=== PATIENT | female | born 1995 | race Caucasian/White ===

== ENCOUNTER → 2022-03-11 | Outpatient (CLI) | payer MEDICAID, SELFPAY ==
[2022-03-12 21:08] LABS: Chlamydia By Nucleic Acid AMP Negative (Negative)
[2022-03-12 21:44] LABS: Gonococcus By Nucleic Acid AMP Negative (Negative)
[2022-03-15 11:34] LABS: HPV Reflexed? NOT INDICATED
== END | disposition home or self-care (01) ==
LOC: LABSPEC 09:59
PROVIDERS: Visit Provider Obstetrics & Gynecology
DX: Z34.00 Encounter for supervision of normal first pregnancy, unspecified trimester (principal)
CPT/HCPCS: 87086; 87088; 87491; 87591; 88175; G0145

== ENCOUNTER → 2022-03-24 | Outpatient (CLI) | payer MEDICAID, SELFPAY ==
[2022-03-24 09:29] LABS: Absolute Lymphocyte Count 1.35 X10^3/uL (0.83-4.51); Absolute Neutrophil Count 4.5 X10^3/uL (2.0-7.7); Basophil# 0.02 X10^3/uL; Basophil% 0.3 % (0-1); Eosinophil# 0.06 X10^3/uL; Eosinophils% 0.9 % (0-5); Hematocrit 40.1 % (37-47); Hemoglobin 13.2 g/dL (12.0-15.0); Lymphocyte # 1.35 X10^3/ul (0.83-4.51); Lymphocyte % 20.5 % (19-41); Mean Corp Hgb Conc 32.9 g/dL (32-36); Mean Corpuscular Hgb 28.4 pg (27.0-32.0); Mean Corpuscular Volume 86.4 fL (81-99); Mean Platelet Vol. 11.1 fl (6.2-12.0); Monocyte# 0.58 X10^3/uL; Monocyte% 8.8 % (0-10); NRBC Flagged by Analyzer 0 % (0-5); Neutrophil # 4.54 X10^3/uL (2.7-7.7); Neutrophil % 69.2 % (47-70); Platelet Count 293 K/mm3 (150-450); RBC Distribution Width CV 13.2 % (11.6-14.6); RBC Distribution Width SD 41.1 fl (35.1-43.9); Red Blood Count 4.64 M/mm3 (4.2-5.4); White Blood Count 6.6 K/mm3 (4.4-11.0)
[2022-03-24 10:07] LABS: Glucose Challenge Gest 1H 50g 104 mg/dL (70-140)
[2022-03-24 10:15] LABS: NATERA MAILED SPECIMEN
[2022-03-24 10:46] LABS: HIV - WCH Non-Reactive (Nonreactive); Hepatitis B Surface Antigen Non-Reactive (Nonreactive); Hepatitis C Antibody Non-Reactive (Nonreactive); Rubella IgG Reactive (Nonreactive); Syphilis Antibodies Non-reactive
== END | disposition home or self-care (01) ==
LOC: PAVLAB 08:26
PROVIDERS: Referring Provider Obstetrics & Gynecology; Visit Provider Obstetrics & Gynecology
DX: Z34.00 Encounter for supervision of normal first pregnancy, unspecified trimester (principal)
CPT/HCPCS: 36415; 82950; 85025; 86703; 86762; 86780; 86803; 86850; 86900; 86901; 87340

== ENCOUNTER → 2022-05-06 | Outpatient (CLI) | payer MEDICAID, SELFPAY ==
[2022-05-06 12:42] LABS: Amphetamine Urine VISTA NEGATIVE (<1000 ng/mL); Barbiturate Urine VISTA NEGATIVE (< 200 ng/mL); Benzodiazepine Urine VISTA NEGATIVE (< 200 ng/mL); Cocaine Urine VISTA NEGATIVE (< 300 ng/mL); Ecstacy Urine VISTA NEGATIVE (< 500 ng/mL); Methadone Urine VISTA NEGATIVE (< 300 ng/mL); PCP Urine VISTA NEGATIVE (< 25 ng/mL); THC Urine VISTA NEGATIVE (< 50 ng/mL); Vista UDS pH Range 6
== END | disposition home or self-care (01) ==
LOC: LABSPEC 12:02
PROVIDERS: Nurse Practitioner Women's Health; Visit Provider Obstetrics & Gynecology
DX: Z34.90 Encounter for supervision of normal pregnancy, unspecified, unspecified trimester (principal)
CPT/HCPCS: 80307

== ENCOUNTER → 2022-07-03 | Outpatient (CLI) | payer MEDICAID, SELFPAY ==
[2022-07-03 10:31] LABS: Absolute Lymphocyte Count 1.69 X10^3/uL (0.83-4.51); Absolute Neutrophil Count 5.6 X10^3/uL (2.0-7.7); Basophil# 0.03 X10^3/uL; Basophil% 0.4 % (0-1); Eosinophil# 0.06 X10^3/uL; Eosinophils% 0.7 % (0-5); Hematocrit 36.5 % (37-47); Hemoglobin 11.9 g/dL (12.0-15.0); Lymphocyte # 1.69 X10^3/ul (0.83-4.51); Mean Corp Hgb Conc 32.6 g/dL (32-36); Mean Corpuscular Hgb 29.5 pg (27.0-32.0); Mean Corpuscular Volume 90.3 fL (81-99); Mean Platelet Vol. 11.6 fl (6.2-12.0); Monocyte# 0.63 X10^3/uL; Monocyte% 7.8 % (0-10); NRBC Flagged by Analyzer 0 % (0-5); Neutrophil # 5.62 X10^3/uL (2.7-7.7); Neutrophil % 69.7 % (47-70); Platelet Count 300 K/mm3 (150-450); RBC Distribution Width CV 12.9 % (11.6-14.6); RBC Distribution Width SD 42.5 fl (35.1-43.9); Red Blood Count 4.04 M/mm3 (4.2-5.4); White Blood Count 8.1 K/mm3 (4.4-11.0)
[2022-07-03 10:42] LABS: Glucose Challenge Gest 1H 50g 105 mg/dL (70-140)
== END | disposition home or self-care (01) ==
LOC: PAVLAB 10:14
PROVIDERS: Referring Provider Obstetrics & Gynecology; Visit Provider Obstetrics & Gynecology
DX: Z34.00 Encounter for supervision of normal first pregnancy, unspecified trimester (principal)
CPT/HCPCS: 36415; 82950; 85025

== ENCOUNTER 2022-09-30 14:15 | Outpatient (CLI) | payer MEDICAID, SELFPAY ==
[2022-09-30] VITALS (9 sets, daily range): BP systolic 127–137; BP diastolic 73–83; PULSE 90–113; TEMP 36.9; O2SAT 97
[2022-09-30 16:00] LABS: Hemoglobin 10.3 g/dL (12.0-15.0); Mean Corp Hgb Conc 31.2 g/dL (32-36); Mean Corpuscular Hgb 25.9 pg (27.0-32.0); Mean Corpuscular Volume 82.9 fL (81-99); Mean Platelet Vol. 11.8 fl (6.2-12.0); Platelet Count 310 K/mm3 (150-450); RBC Distribution Width CV 12.9 % (11.6-14.6); RBC Distribution Width SD 38.9 fl (35.1-43.9); Red Blood Count 3.98 M/mm3 (4.2-5.4); White Blood Count 8.9 K/mm3 (4.4-11.0)
[2022-09-30 16:18] LABS: AST(SGOT) 10 U/L (15-37); Alanine Aminotransfer ALT/SGPT 19 U/L (13-56); Creatinine, Serum 0.69 mg/dL (0.55-1.02); EST Glomerular Filtration Rate 110 mL/min (>60); Est Glom Filt Rate - Afr Amer 133 mL/min (>60); Uric Acid 5.5 mg/dL (2.6-6.0)
[2022-09-30 16:19] LABS: Protein, Urine (Random) 8.8 mg/dL (<11.9); Protein:Creat Ratio 182 mg/g CRE (0-200)
--- NOTE | 2022-09-30 16:40 | OB.TRI.NOTE ---
HPI - General General Date of Admission: 09/30/22 HPI Narrative OLVIN KOEHLER, is a 27 y/o G1 @ 39 weeks who presents to L&D to rule out PIH. She had some elevated blood pressures in office, however on L&D pressures were noted to be normal and her PIH lab work up including pro:cr ratio were normal. She declines induction. Maternal Data Information NADIA Calculator Estimated Delivery Date Method Current WG Current Estimate 10/06/22 LMP (Certain) 40w 0d Other Estimates 10/01/22 Ultrasound #1 40w 5d PFSH PFSH Medical History Closed TBI (traumatic brain injury) Placenta previa Home Medications ferrous sulfate 325 mg (65 mg iron) tablet (Feosol) 325 mg PO DAILY 02/24/22 [History Last Taken Unknown] prenat.vits,maksim,qpe-[id number] 1 tab PO DAILY 02/24/22 [History Last Taken Unknown] Allergy/AdvReac Type Severity Reaction Status Date / Time pseudoephedrine AdvReac Severe hives and Verified 09/30/22 13:[facility] anaphlactic Family History Sister Neurofibromatosis Mother Endometriosis Grandmother Breast cancer Surgical History History of meniscectomy of left knee Social History adopted: No household members: significant other current occupational status: employed current occupation: pets and animals: Yes (avoid litter box) pets and animals: cat(s) Smoking Status: Never smoker alcohol intake: never substance use type: does not use do you feel safe at home: Yes additional social history: BF:Braxton History 1 Elective abortions Hx Para Spontaneous abortions Hx # Term Pregnancies Ectopic pregnancies Hx # Pregnancies Multiple births # of living children Visit Details Expected Delivery Route/Plan Labor Preferences- CB/BF classes: [] labor support person: [] labor intervention preferences: [] pain management options preferred: [] cut cord/dad catch: [] : [] PP control planned: [] discussed possible routes of delivery and associated risks: [] special requests: [] Plans Covid status: vaccinated Flu vaccine: declines Tdap vaccine: discussed Rhogam: na LARC form signed: movement and labor precautions reviewed. Problem list reviewed and updated with the most current plan of care details and appropriate orders placed. Relevant counseling for the gestational age provided. Continue routine care and follow up unless otherwise noted in visit notes/problem list details OB Flowsheet Initial Weight: Not Recorded Date <del>?</del> EGA Weight BP Urine Prot <del>?</del> Glucose FHR FuHt Pres Dilation <del>?</del> Effaced St Visit Note 03/10/22 <del>?</del> 10w 0d 245 lb 2 oz 138/70 <del>?</del> 158 <del>?</del> SM- CRL cons with LMP SM- CRL 3cm cons with LMP 04/08/22 <del>?</del> 14w 1d 239 lb 120/78 Negative <del>?</del> Negative 150 <del>?</del> JV-no lof, vaginal bleeding, or cramping. anatomy ultrasound ordered 05/06/22 <del>?</del> 18w 1d 236 lb 6 oz 120/64 Negative <del>?</del> Negative 146 <del>?</del> MH-No VB. Nausea persists off and on. Anatomy US is 05/1906/05/22 <del>?</del> 22w 3d 236 lb 2 oz 113/81 Negative <del>?</del> Negative 145 <del>?</del> FILI pozo is upset about the vending technician at [facility]. she states that she was talking about her badly while she was in the restroom and heard. she was reluctant to go back but plans to for follow up marginal previa. pelvic rest discussed. 07/03/22 <del>?</del> 26w 3d 240 lb 8 oz 131/78 <del>?</del> 144 26 <del>?</del> FILI pozo has continued location where she points to the pain. plan for binding in the meantime. normal glucola and cbc 07/15/22 <del>?</del> 28w 1d 243 lb 130/82 Negative <del>?</del> Negative 145 29 <del>?</del> SM- no vb lof good fm no reuglar ctx 07/29/22 <del>?</del> 30w 1d 246 lb 120/82 Negative <del>?</del> Negative 156 30 <del>?</del> MH-No VB, LOF. Good FM. 08/14/22 <del>?</del> 32w 3d 245 lb 130/76 Negative <del>?</del> Negative 136 32 <del>?</del> MH-No VB, LOF. Good FM. Tdap. Had growth US yesterday with [facility] 09/30/22 <del>?</del> 39w 1d 257 lb 8 oz 139/90 139/90 Negative <del>?</del> Negative 130 <del>?</del> JV- pt has non-reactive NST, slightly elevated bp's and a migraine. sending to L&D now. will need rapid GBS also ROS Constitutional Constitutional: Reports systems reviewed and no addt'l complaints, except as documented Gastrointestinal Gastrointestinal: Denies bloating, constipation, cramping, diarrhea, nausea or vomiting Genitourinary Genitourinary: Reports other Details: Denies vaginal odor, vaginal bleeding, or vaginal discharge ; Denies difficulty urinating or flank pain Physical Exam HEENT normocephalic Resp normal respiratory effort and normal air movement no CVA tenderness Extremity normal to inspection General Extremity: edema bilateral (trace ) NST FHR Rate Baby A Baseline: 130 Variability:: Moderate Accelerations:: 15 x 15 Decelerations:: None NST Reactive:: Yes FHR Category:: Category I Assessment & Plan (1) Positive GBS test: COMMENT: PCN at delivery (2) Abdominal hernia: (3) Obesity affecting : COMMENT: encouraged healthy weight gain. 1 TM GCT. weekly nsts after 34, growth US at 32 and 36, 07/14 nl growth, 08/12 nl growth, 09/04 nl growth 3009g 64% (4) Supervision of normal first : COMMENT: PRR NADIA:10/06/22 BF:Braxton Coker. (5) : QUALIFIERS: Weeks of gestation: 39 weeks Qualified Code(s): Z3A.39 - 39 weeks gestation of COMMENT: nl anatomy. NIPT low risk, carrier neg. 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
[2022-09-30 17:24] LABS: Group B Strep DNA By PCR POSITIVE (Negative); Probe Check PASS
--- NOTE | 2022-10-06 16:40 | OB.TRI.HP_ITS ---
HPI - General General Date of Admission: 09/30/22 HPI Narrative OLVIN KOEHLER, is a 27 y/o G1 @ 39 weeks who presents to L&D to rule out PIH. She had some elevated blood pressures in office, however on L&D pressures were noted to be normal and her PIH lab work up including pro:cr ratio were normal. She declines induction. Maternal Data Information NADIA Calculator Estimated Delivery Date Method Current WG Current Estimate 10/06/22 LMP (Certain) 40w 0d Other Estimates 10/01/22 Ultrasound #1 40w 5d PFSH PFSH Medical History Closed TBI (traumatic brain injury) Placenta previa Home Medications ferrous sulfate 325 mg (65 mg iron) tablet (Feosol) 325 mg PO DAILY 02/24/22 [History Last Taken Unknown] prenat.vits,maksim,dpw-[id number] 1 tab PO DAILY 02/24/22 [History Last Taken Unknown] Allergy/AdvReac Type Severity Reaction Status Date / Time pseudoephedrine AdvReac Severe hives and Verified 09[facility]30/22 13:36 [facility] anaphlactic Family History Sister Neurofibromatosis Mother Endometriosis Grandmother Breast cancer Surgical History History of meniscectomy of left knee Social History adopted: No household members: significant other current occupational status: employed current occupation: pets and animals: Yes (avoid litter box) pets and animals: cat(s) Smoking Status: Never smoker alcohol intake: never substance use type: does not use do you feel safe at home: Yes additional social history: BF:Braxton History 1 Elective abortions Hx Para Spontaneous abortions Hx # Term Pregnancies Ectopic pregnancies Hx # Pregnancies Multiple births # of living children Visit Details Expected Delivery Route/Plan Labor Preferences- CB/BF classes: [] labor support person: [] labor intervention preferences: [] pain management options preferred: [] cut cord/dad catch: [] : [] PP control planned: [] discussed possible routes of delivery and associated risks: [] special requests: [] Plans Covid status: vaccinated Flu vaccine: declines Tdap vaccine: discussed Rhogam: na LARC form signed: movement and labor precautions reviewed. Problem list reviewed and updated with the most current plan of care details and appropriate orders placed. Relevant counseling for the gestational age provided. Continue routine care and follow up unless otherwise noted in visit notes/problem list details OB Flowsheet Initial Weight: Not Recorded Date -?-?-?-?-?-?-?-?-?-?-?-?- EGA Weight BP Urine Prot -?-?-?-?-?-?-?-?-?-?-?-?- Glucose FHR FuHt Pres Dilation -?-?-?-?-?-?-?-?-?-?-?-?- Effaced St Visit Note 03/10/22 -?-?-?-?-?-?-?-?-?-?-?-?- 10w 0d 245 lb 2 oz 138/70 -?-?-?-?-?-?-?-?-?-?-?-?- 158 -?-?-?-?-?-?-?-?-?-?-?-?- SM- CRL cons wit h LMP SM- CRL 3cm cons with LMP 04/08/22 -?-?-?-?-?-?-?-?-?-?-?-?- 14w 1d 239 lb 120/78 Negative -?-?-?-?-?-?-?-?--?-?-?-?- Negative 150 -?-?-?-?-?-?-?-?-?-?-?-?- JV-no lof, vagin al bleeding, or cramping. anatomy ultrasound ordered 05/06/22 -?-?-?-?-?-?-?-?-?-?-?--?- 18w 1d 236 lb 6 oz 120/64 Nega tive -?-?-?-?-?-?-?-?-?-?-?-?- Negative 146 -?-?-?-?-?-?-?-?-?-?-?-?- MH-No VB. Nausea persists off and on. Anatomy US is 05/1906/05/22 -?-?-?-?-?-?-?-?-?-?-?-?- 22w 3d 236 lb 2 oz 113/81 Nega tive -?-?-?-?-?-?-?-?-?-?-?-?- Negative 145 -?-?-?-?-?-?-?-?-?-?-?-?- FILI pozo is upset about the service tech/welder at [facility]. she states that she was talking about her badly while she was in the restroom and heard. she was reluctant to go back but plans to for follow up marginal previa. pelvic rest discussed. 07/03/22 -?-?-?-?-?-?-?-?-?-?-?-?- 26w 3d 240 lb 8 oz 131/78 -?-?-?-?-?-?-?-?-?-?-?-?- 144 26 -?-?-?-?-?-?-?-?-?-?-?-?- FILI pozo has jose guadalupe nued location where she points to the pain. plan for binding in the meantime. normal glucola and cbc 07/15/22 -?-?-?-?-?-?-?-?-?-?-?-?- 28w 1d 243 lb 130/82 Negative -?-?-?-?-?-?-?-?-?-?-?-?- Negative 145 29 -?-?-?-?-?-?-?-?-?-?-?-?- SM- no vb lof go od fm no reuglar ctx 07/29/22 -?-?-?-?-?-?-?-?-?-?-?-?- 30w 1d 246 lb 120/82 Negative -?-?-?-?-?-?-?-?-?-?-?-?- Negative 156 30 -?-?-?-?-?-?-?-?-?-?-?-?- -No VB, LOF. G ood FM. 08/14/22 -?-?-?-?-?-?-?-?-?-?-?-?- 32w 3d 245 lb 130/76 Negative -?-?-?-?-?-?-?-?-?-?-?-?- Negative 136 32 -?-?-?-?-?-?-?-?-?-?-?-?- MH-No VB, LOF. G ood FM. Tdap. Had growth US yesterday with [facility] 09/30/22 -?-?-?-?-?-?-?-?-?-?-?-?- 39w 1d 257 lb 8 oz 139/90 139/90 Negative -?-?-?-?-?-?-?-?-?-?-?-?- Negative 130 -?-?-?-?-?-?-?-?-?-?-?-?- JV- pt has non-r eactive NST, slightly elevated bp's and a migraine. sending to L&D now. will need rapid GBS also ROS Constitutional Constitutional: Reports systems reviewed and no addt'l complaints, except as documented Gastrointestinal Gastrointestinal: Denies bloating, constipation, cramping, diarrhea, nausea or vomiting Genitourinary Genitourinary: Reports other Details: Denies vaginal odor, vaginal bleeding, or vaginal discharge ; Denies difficulty urinating or flank pain Physical Exam HEENT normocephalic Resp normal respiratory effort and normal air movement no CVA tenderness Extremity normal to inspection General Extremity: edema bilateral (trace ) NST FHR Rate Baby A Baseline: 130 Variability:: Moderate Accelerations:: 15 x 15 Decelerations:: None NST Reactive:: Yes FHR Category:: Category I Assessment & Plan (1) Positive GBS test: COMMENT: PCN at delivery (2) Abdominal hernia: (3) Obesity affecting : COMMENT: encouraged healthy weight gain. 1 TM GCT. weekly nsts after 34, growth US at 32 and 36, 07/14 nl growth, 08/12 nl growth, 09/04 nl growth 3009g 64% (4) Supervision of normal first : COMMENT: PRR NADIA:10/06/22 BF:Braxton John Paul. (5) : QUALIFIERS: Weeks of gestation: 39 weeks Qualified Code(s): Z3A.39 - 39 weeks gestation of COMMENT: nl anatomy. NIPT low risk, carrier neg. 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
== END 2022-09-30 17:40 | disposition home or self-care (01) ==
LOC: WPOUT 14:24 → WP 14:24
PROVIDERS: Referring Provider Obstetrics & Gynecology; Visit Provider Obstetrics & Gynecology
DX: O99.613 Diseases of the digestive system complicating pregnancy, third trimester (principal); O99.213 Obesity complicating pregnancy, third trimester; K46.9 Unspecified abdominal hernia without obstruction or gangrene; Z3A.39 39 weeks gestation of pregnancy; E66.9 Obesity, unspecified
CPT/HCPCS: 36415; 59025; 59050; 82565; 82570; 84156; 84450; 84460; 84550; 85027; 87653; 99218; G0378

== ENCOUNTER 2022-10-09 13:55 | Outpatient (CLI) | payer MEDICAID, SELFPAY ==
--- NOTE | 2022-10-09 13:57 | US_ITS ---
STUDY: SECOND AND THIRD TRIMESTER OBSTETRICAL ULTRASOUND REASON FOR EXAM: Female, 27 years old growth w/bpp for well being LMP: 12/30/2021. TECHNIQUE: Transabdominal TECHNICAL QUALITY: Adequate. PRIOR ULTRASOUND: None. FINDINGS: There is a single intrauterine fetus. The fetus is in a cephalic presentation. There is demonstrated cardiac activity with a heart rate of 127 bpm. There is a normal amniotic fluid volume. The largest amniotic fluid pocket measures 5.6 cm. The amniotic fluid index (MELCHOR) is 14.5 cm. The placenta is posterior in location and is not low lying. There are Grade 1 placental changes. The adnexal regions are not visualized. BIOMETRY: BPD: 9.82 cm: 40 weeks, 2 days HC: 35.15 cm: 41 weeks, 0 days AC: 35.14 cm: 39 weeks, 0 days FL: 7.59 cm: 38 weeks, 6 days CI: 86% FL/BPD: 77% FL/HC: FL/AC: 22% HC/AC: 1.00 age by current US: 39 weeks, 2 days. NADIA by current US: 10/14/2022. Estimated weight: 3768 grams, +/- 565 grams. Percentile not available due to the past due date. Age by LMP: 40 weeks, 3 days. NADIA by LMP: 10/06/2022. IMPRESSION: Single live uterine gestation with a mean gestational age of 39 weeks and 2 days. Electronically Signed: Haja Johnson MD at 15:07 EST , STUDY: OBSTETRICAL ULTRASOUND - BIOPHYSICAL PROFILE REASON FOR EXAM: Female, 27 years old growth w/bpp for well being LMP: 12/30/2021. PRIOR ULTRASOUND: None. TECHNIQUE: Transabdominal TECHNICAL QUALITY: Adequate. FINDINGS: BIOPHYSICAL PROFILE: Breathing Movements (FBM): 0 Gross Body Movements (GBM): 2 Tone (FT): 2 Amniotic Fluid Volume (AFV): 2 TOTAL SCORE: US/OB Limited With Biometrics IMPRESSION: biophysical profile of 03/26. Electronically Signed: Haja Johnson MD at 15:08 EST ,
--- NOTE | 2022-10-09 13:57 | US_ITS ---
STUDY: SECOND AND THIRD TRIMESTER OBSTETRICAL ULTRASOUND REASON FOR EXAM: Female, 27 years old growth w/bpp for well being LMP: 12/30/2021. TECHNIQUE: Transabdominal TECHNICAL QUALITY: Adequate. PRIOR ULTRASOUND: None. FINDINGS: There is a single intrauterine fetus. The fetus is in a cephalic presentation. There is demonstrated cardiac activity with a heart rate of 127 bpm. There is a normal amniotic fluid volume. The largest amniotic fluid pocket measures 5.6 cm. The amniotic fluid index (MELCHOR) is 14.5 cm. The placenta is posterior in location and is not low lying. There are Grade 1 placental changes. The adnexal regions are not visualized. BIOMETRY: BPD: 9.82 cm: 40 weeks, 2 days HC: 35.15 cm: 41 weeks, 0 days AC: 35.14 cm: 39 weeks, 0 days FL: 7.59 cm: 38 weeks, 6 days CI: 86% FL/BPD: 77% FL/HC: FL/AC: 22% HC/AC: 1.00 age by current US: 39 weeks, 2 days. NADIA by current US: 10/14/2022. Estimated weight: 3768 grams, +/- 565 grams. Percentile not available due to the past due date. Age by LMP: 40 weeks, 3 days. NADIA by LMP: 10/06/2022. IMPRESSION: Single live uterine gestation with a mean gestational age of 39 weeks and 2 days. Electronically Signed: Haja Johnson MD at 15:07 EST , STUDY: OBSTETRICAL ULTRASOUND - BIOPHYSICAL PROFILE REASON FOR EXAM: Female, 27 years old growth w/bpp for well being LMP: 12/30/2021. PRIOR ULTRASOUND: None. TECHNIQUE: Transabdominal TECHNICAL QUALITY: Adequate. FINDINGS: BIOPHYSICAL PROFILE: Breathing Movements (FBM): 0 Gross Body Movements (GBM): 2 Tone (FT): 2 Amniotic Fluid Volume (AFV): 2 TOTAL SCORE: 8 US/Biophysical Prof W/O Non Stres IMPRESSION: biophysical profile of 03/26. Electronically Signed: Haja Johnson MD at 15:08 EST ,
[2022-10-09 14:53] VITALS: BMI 44.6
[2022-10-09 15:30] VITALS: BP 142/84; PULSE 102
[2022-10-09 15:35] VITALS: PULSE 114; O2SAT 96
[2022-10-09 15:40] VITALS: PULSE 98; O2SAT 98
[2022-10-09 15:45] VITALS: PULSE 97; O2SAT 97
[2022-10-09 15:50] VITALS: PULSE 108; O2SAT 98
[2022-10-09 15:55] VITALS: PULSE 107; O2SAT 98
--- NOTE | 2022-10-09 16:47 | PCM.PN.BLA ---
Progress Note Patient presents for triage evaluation secondary to bpp 6/8 FHT: 120 baseline with Moderate variability reactive with 15 x 15 bpm accelerations, no decelerations category I tracing [place]: no Contractions Assessment and plan: Bpp now 8/10 Reactive NST, reassuring maternal and status patient discharged to home to follow-up next thursday for IOL. See problem list details for additional plan information. Assessment & Plan Assessment/Plan (1) Positive GBS test: (2) Abdominal hernia: (3) Obesity affecting : PLAN: bpp today was 6/8 ( 2 points off for breathing) but NST looks reactive with accelerations dc to home (4) Supervision of normal first : (5) : QUALIFIERS: Weeks of gestation: 40 weeks Qualified Code(s): Z3A.40 - 40 weeks gestation of (6) History of anemia: Multi Select Codes Urinary/Genital Urinary/Genital CPT Codes: 62427-15 non-stress test Interp
== END 2022-10-09 16:05 | disposition home or self-care (01) ==
LOC: US 13:56 → WPOUT 14:50 → WP 14:51
PROVIDERS: Referring Provider Obstetrics & Gynecology; Visit Provider Obstetrics & Gynecology
DX: O99.820 Streptococcus B carrier state complicating pregnancy (principal); O99.613 Diseases of the digestive system complicating pregnancy, third trimester; O99.213 Obesity complicating pregnancy, third trimester; K46.9 Unspecified abdominal hernia without obstruction or gangrene; E66.9 Obesity, unspecified; Z3A.40 40 weeks gestation of pregnancy
CPT/HCPCS: 59025; 59050; 76816; 76819; 99218; G0378

== ENCOUNTER 2022-10-13 07:36 | Inpatient (IN) | payer MEDICAID, SELFPAY ==
[2022-10-13] VITALS (53 sets, daily range): BP systolic 106–208; BP diastolic 58–94; PULSE 82–139; RESP 17–18; TEMP 36.2–38.1; O2SAT 90–100; BMI 44.3
[2022-10-13] MEDS: Lactated Ringers 1,000 ML 50 ML IV (08:10)
[2022-10-13 08:41] LABS: Absolute Lymphocyte Count 1.58 X10^3/uL (0.83-4.51); Absolute Neutrophil Count 6.1 X10^3/uL (2.0-7.7); Basophil# 0.04 X10^3/uL; Basophil% 0.5 % (0-1); Eosinophil# 0.06 X10^3/uL; Eosinophils% 0.7 % (0-5); Hematocrit 31.1 % (37-47); Hemoglobin 9.9 g/dL (12.0-15.0); Lymphocyte # 1.58 X10^3/ul (0.83-4.51); Lymphocyte % 18.5 % (19-41); Mean Corp Hgb Conc 31.8 g/dL (32-36); Mean Corpuscular Hgb 26.2 pg (27.0-32.0); Mean Corpuscular Volume 82.3 fL (81-99); Monocyte# 0.67 X10^3/uL; Monocyte% 7.8 % (0-10); NRBC Flagged by Analyzer 0 % (0-5); Neutrophil # 6.13 X10^3/uL (2.7-7.7); Neutrophil % 71.7 % (47-70); Platelet Count 316 K/mm3 (150-450); RBC Distribution Width CV 13.6 % (11.6-14.6); RBC Distribution Width SD 40.6 fl (35.1-43.9); Red Blood Count 3.78 M/mm3 (4.2-5.4); White Blood Count 8.6 K/mm3 (4.4-11.0)
[2022-10-13] MEDS: Oxytocin 15 Units/NS 250ml 15 UNITS/250 ML IV.SOLN 2 UNITS IV (08:44)
--- NOTE | 2022-10-13 09:47 | HP.PCM.OB_ITS ---
HPI - General General Date of Admission: 10/13/22 HPI Narrative OLVIN KOEHLER, is a 27 F who presents for IOL postdates Maternal Data Information NADIA Calculator Estimated Delivery Date Method Current WG Current Estimate 10/06/22 LMP (Certain) 41w 0d Other Estimates 10/01/22 Ultrasound #1 41w 5d PFSH PFSH Medical History (Updated 10/13/22 @ 08:17 by Kourtney Hidalgo) Anxiety Asthma Closed TBI (traumatic brain injury) Headache Placenta previa Home Medications prenat.vits,maksim,dmv-ypiy-iltpm 1 tab PO DAILY Check with primary doctor 02/24/22 [History Last Taken Unknown] promethazine 12.5 mg tablet 12.5 mg PO Q6H PRN PRN Nausea 10/13/22 [History Last Taken Unknown] Allergy/AdvReac Type Severity Reaction Status Date / Time pseudoephedrine AdvReac Severe hives and Verified 10/13/22 07:58 [From Sudafed] anaphlactic Family History Sister Neurofibromatosis Mother Endometriosis Grandmother Breast cancer Surgical History (Updated 10/13/22 @ 08:17 by Kourtney Hidalgo) History of meniscectomy of left knee History of surgery Social History adopted: No household members: significant other current occupational status: employed current occupation: [employer] pets and animals: Yes (avoid litter box) pets and animals: cat(s) Smoking Status: Never smoker alcohol intake: never substance use type: does not use do you feel safe at home: Yes additional social history: BF:Braxton History 1 Elective abortions Hx Para 0 Spontaneous abortions Hx # Term Pregnancies Ectopic pregnancies Hx # Pregnancies Multiple births # of living children Visit Details Expected Delivery Route/Plan Labor Preferences- CB/BF classes: [] labor support person: [] labor intervention preferences: [] pain management options preferred: [] cut cord/dad catch: [] : [] PP control planned: [] discussed possible routes of delivery and associated risks: [] special requests: [] Plans Covid status: vaccinated Flu vaccine: declines Tdap vaccine: discussed Rhogam: na LARC form signed: movement and labor precautions reviewed. Problem list reviewed and updated with the most current plan of care details and appropriate orders placed. Relevant counseling for the gestational age provided. Continue routine care and follow up unless otherwise noted in visit notes/problem list details OB Flowsheet Initial Weight: Not Recorded Date -?-?-?-?-?-?-?-?-?-?-?-?- EGA Weight BP Urine Prot -?-?-?-?-?-?-?-?-?-?-?-?- Glucose FHR FuHt Pres Dilation -?-?-?-?-?-?-?-?-?-?-?-?- Effaced St Visit Note 03/10/22 -?-?-?-?-?-?-?-?-?-?-?-?- 10w 0d 111.187 kg 138/70 -?-?-?-?-?-?-?-?-?--?-?-?- 158 -?-?-?-?-?-?-?-?-?-?-?-?- SM- CRL cons wit h LMP SM- CRL 3cm cons with LMP 04/08/22 -?-?-?-?-?-?-?-?-?-?-?-?- 14w 1d 108.409 kg 120/78 Negat jay jay -?-?-?-?-?-?-?-?-?-?-?-?- Negative 150 -?-?-?-?-?-?-?-?-?-?-?-?- JV-no lof, vagin al bleeding, or cramping. anatomy ultrasound ordered 05/06/22 -?-?-?-?-?-?-?-?-?-?-?-?- 18w 1d 107.218 kg 120/64 Negat jay jay -?-?-?-?-?-?-?-?-?-?-?-?- Negative 146 -?-?-?-?-?-?-?-?-?-?-?-?- MH-No VB. Nausea persists off and on. 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 she states that she was talking about her badly while she was in the restroom and heard. she was reluctant to go back but plans to for follow up marginal previa. pelvic rest discussed. 07/03/22 -?-?-?-?-?-?-?-?-?-?-?-?- 26w 3d 109.089 kg 131/78 -?-?-?-?-?-?-?-?-?-?-?-?- 144 26 -?-?-?-?-?-?-?-?-?-?-?-?- FILI pozo has jose guadalupe nued location where she points to the pain. plan for binding in the meantime. normal glucola and cbc 07/15/22 -?-?-?-?-?-?-?-?-?-?-?-?- 28w 1d 110.223 kg 130/82 Negat jay jay -?-?-?-?-?-?-?-?-?-?-?-?- Negative 145 29 -?-?-?-?-?-?-?-?-?-?-?-?- SM- no vb lof go od fm no reuglar ctx 07/29/22 -?-?-?-?-?-?-?-?-?-?-?-?- 30w 1d 111.584 kg 120/82 Negat jay jay -?-?-?-?-?-?-?-?-?-?--?-?- Negative 156 30 -?-?-?-?-?-?-?-?-?-?-?-?- MH-No VB, LOF. G ood FM. 08/14/22 -?-?-?-?-?-?-?-?-?-?-?-?- 32w 3d 111.13 kg 130/76 Negati ve -?-?-?-?-?-?-?-?-?-?-?-?- Negative 136 32 -?-?-?-?-?-?-?-?-?-?-?-?- MH-No VB, LOF. G ood FM. Tdap. Had growth US yesterday with MFM 09/30/22 -?-?-?-?-?-?-?-?-?-?-?-?- 39w 1d 116.8 kg 139/90 139/90 Negative -?-?-?-?-?-?-?-?-?-?-?-?- Negative 130 -?-?-?-?-?-?-?-?-?-?-?-?- JV- pt has non-r eactive NST, slightly elevated bp's and a migraine. sending to L&D now. will need rapid GBS also 10/09/22 -?-?-?-?-?-?-?-?-?-?-?-?- 40w 3d 118.388 kg 136/79 Negat jay jay -?-?-?-?-?-?-?-?-?-?-?-?- Negative 169 40 Cephalic 2 -?-?-?-?-?-?-?-?-?-?-?-?- 80 -1 JV- no lof , vaginal bleeding or dec fm. has bpp scheduled, will add on growth. IOL is set up for 41 weeks 10/13/22 -?-?-?-?-?-?-?-?-?-?-?-?- 41w 0d 117.707 kg 150/94 144/77 140/85 -?-?-?-?-?-?-?-?-?-?-?-?- -?-?-?-?-?-?-?-?-?-?-?-?- NST FHR Rate Baby A Baseline: 140 Variability:: Moderate Accelerations:: 15 x 15 Decelerations:: None NST Reactive:: Yes FHR Category:: Category I Uterine Activity:: q3-5 ROS Constitutional Constitutional: Reports systems reviewed and no addt'l complaints, except as documented ENT HEENT: Reports systems reviewed and no addt'l complaints, except as documented Cardiovascular Cardiovascular: Reports systems reviewed and no addt'l complaints, except as documented Respiratory/Chest Respiratory/Chest: Reports systems reviewed and no addt'l complaints, except as documented Gastrointestinal Gastrointestinal: Reports systems reviewed and no addt'l complaints, except as documented and nausea; Denies abdominal pain Genitourinary Genitourinary: Reports systems reviewed and no addt'l complaints, except as documented, contractions Details: present and frequency (regular ) and movement Details: present Musculoskeletal Musculoskeletal: Reports systems reviewed and no addt'l complaints, except as documented Integumentary Integumentary: Reports as per HPI Neurologic Neurologic: Reports systems reviewed and no addt'l complaints, except as documented Endocrine Endocrinology: Reports systems reviewed and no addt'l complaints, except as documented Vital Signs Vital Signs Vital Signs: 10/13/22 07:52 10/13/22 07:52 10/13/22 07:52 Temperature Temperature Source Pulse Rate 117 H Blood Pressure 150/94 H 144/77 H BP Systolic 150 144 BP Diastolic 94 77 Pulse Ox 10/13/22 07:52 10/13/22 07:54 10/13/22 07:54 Temperature Temperature Source Pulse Rate 121 H 122 H Blood Pressure BP Systolic BP Diastolic Pulse Ox 98 10/13/22 07:51 10/13/22 07:51 10/13/22 09:19 Temperature 98.2 F Temperature Source Temporal Pulse Rate Blood Pressure 140/85 H BP Systolic 140 BP Diastolic 85 Pulse Ox 10/13/22 09:19 10/13/22 09:23 10/13/22 09:23 Temperature Temperature Source Pulse Rate 102 H 114 H Blood Pressure BP Systolic BP Diastolic Pulse Ox 98 10/13/22 09:19 10/13/22 09:19 10/13/22 09:19 Temperature 98.2 F Temperature Source Temporal Pulse Rate Blood Pressure BP Systolic BP Diastolic Pulse Ox 99 Weight Weight: 117.707 kg Body Mass Index (BMI) 44.3 Physical Exam Const alert, oriented x3 and healthy appearing Constitutional Narrative: uncomfortable with contractions HEENT normocephalic and moist oral mucous membranes Head and Scalp: atraumatic Neck full ROM, no lymphadenopathy, supple and thyroid normal General: trachea midline Thyroid: thyroid normal Lymph Lymphatic: no lymphadenopathy noted Chest inspection of chest normal Resp normal respiratory effort Cardio regular rate GI normal to inspection, nondistended, normoactive bowel sounds, soft to palpation and non-tender Inspection: gravid external exam normal Bimanual Exam - Vag & Uterus: uterus non-tender Manual OB Exam: estimated gestational size appropriate, presentation cephalic, dilated, effaced and station Extremity normal to inspection General Extremity: Negative for edema Skin no rashes or lesions noted Neuro deep tendon reflexes 2+ bilaterally Motor Exam: strength 5/5 throughout and clonus absent Psych mental status grossly normal Labs Labs Labs: Blood Type A POSITIVE Antibody Screen NEGATIVE Hct 31.1 % (37-47) L Hgb 9.9 g/dL (12.0-15.0) L Obstetrics US Syphilis Total Ab Non-reactive Rubella IgG Antibody Reactive (Nonreactive) Hep Bs Antigen Non-Reactive (Nonreactive) Chlamydia DNA ([facility]SE) Negative (Negative) Neisseria gonorrhoeae DNA ([facility]) Negative (Negative) HIV 1&2 Antibody Non-Reactive (Nonreactive) Glucose 1 Hr 50 gm 105 mg/dL (70-140) Group B Strep DNA POSITIVE (Negative) H Assessment & Plan (1) : QUALIFIERS: Weeks of gestation: 40 weeks Qualified Code(s): Z3A.40 - 40 weeks gestation of COMMENT: nl anatomy. NIPT low risk, carrier neg. 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 1 TM GCT. weekly nsts after 34, growth US at 32 and 36, 07/14 nl growth, 08/12 nl growth, 09/04 nl growth 3009g 64% (5) Positive GBS test: COMMENT: PCN at delivery (6) Abdominal hernia: PLAN: Plan Patient presents IOL, plan management for with pitocin/AROM. Pain management: prefers minimal intervention. GBS positive pcn now. Management of any complications: none I have reviewed the [facility] and made any clinically relevant updates.
--- NOTE | 2022-10-13 09:54 | OP.PCM_ITS ---
Assessment & Plan (1) History of anemia: COMMENT: resolved with Fe (2) : QUALIFIERS: Weeks of gestation: 40 weeks Qualified Code(s): Z3A.40 - 40 weeks gestation of COMMENT: nl anatomy. NIPT low risk, carrier neg. 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 (4) Obesity affecting : COMMENT: encouraged healthy weight gain. 1 TM GCT. weekly nsts after 34, growth US at 32 and 36, 07/14 nl growth, 08/12 nl growth, 09/04 nl growth 3009g 64% (5) Positive GBS test: COMMENT: PCN at delivery (6) Vaginal delivery: COMMENT: SM girl Magaly IOL 41 atony PPH 500cc methergine hemabate (7) Atony of uterus without hemorrhage: COMMENT: 500cc methergine hemabate given small retained membranes removed Maternal Data Information NADIA Calculator Estimated Delivery Date Method Current WG Current Estimate 10/06/22 LMP (Certain) 41w 0d Other Estimates 10/01/22 Ultrasound #1 41w 5d Vaginal Delivery Operative Information Date of Procedure: 10/13/22 Pre-Operative Diagnosis: IOL postdates Post-Operative Diagnosis: same Surgery / Procedure Performed: Spontaneous Vaginal Delivery Type of Anesthesia: Epidural Special Medications: none Estimated Blood Loss: 500 Fluids Replaced: crystalloid Findings Description of Procedure: Patient began pushing and delivered the head in the CARMEN presentation. The head was delivered atraumatically . The anterior and posterior shoulders delivered without complication followed by the rest of the and the infant was placed on the maternal abdomen. Delayed cord clamping was employed for approximately 60 seconds. Cord was clamped and cut and gentle traction was applied to the cord and the placenta delivered spontaneously immediately following it was noted to be intact with three-vessel cord. The perineum and vagina were inspected and noted to have a first degree laceration repaired in marixa usual fashion. atony was encountered and methergine and hemabate given x 1 each, some retained membranes were removed but no placenta found, manual inspection of the uterine lining done. EBL was 500. Patient and infant tolerated delivery well. Presentation: SHON Amniotic Membrane Rupture Type: Artificial Amniotic Fluid Description: Clear Placental Delivery Description: Spontaneous Placenta Disposition: [facility] Cord Vessel Description: 3 Vessels Cord Entanglement: None Delayed Cord Clamping: Yes Post Vaginal Delivery Medications Given After Delivery: IV Pitocin Episiotomy Description: None Laceration: Perineal Extension/lac and 1st degree Complication Complications: None Procedures Urinary/Genital [id number]: [id number] Vaginal Delivery [facility]
[2022-10-13] MEDS: Penicillin G 3,000,000 Units 50 ML 100 UNITS IV ×3 (12:57→20:12)
[2022-10-13] MEDS: fentaNYL 100 MCG/2 ML Ampul IV ×2 (14:04→22:57)
[2022-10-13] MEDS: Ondansetron 4 MG/2 ML Vial IV ×2 (14:13→20:08)
[2022-10-13] MEDS: LACTATED RINGERS 500 ML 999 ML IV (15:18)
[2022-10-13] MEDS: fentaNYL-bupivacaine (epidural) 100 ML BAG EPIDURAL ×2 (16:26→20:33)
[2022-10-13] MEDS: Lactated Ringers 1,000 ML 200 ML IV (18:14)
[2022-10-13] MEDS: 0.9% Saline Lock 10 ML Syringe IV (18:58)
[2022-10-13] MEDS: Methylergonovine 0.2 MG/ML Ampul IM (22:45)
[2022-10-13] MEDS: Carboprost Tromethamine 250 MCG/ML Ampul IM (22:46)
--- NOTE | 2022-10-13 23:13 | DCINST_ITS ---
Discharge Instructions Diet Discharge Diet: No restrictions Activity Discharge Activity: Return to Normal Activity, May Drive, May Shower and May Take a Tub Bath (in 4 weeks) May resume sexual activity in: 6-8 weeks (after seen by OB provider) Weight Bearing Status: Full weight bearing Lifting Restrictions: none Dressing / Incision Call your doctor if you observe: Fever of 101 or Higher, Inability to urinate, Using more than 1 pad per hour (for more than 2 hours in a row or more), Shortness of breath, Dizziness, Chest pain and - (headache not controlled with tylenol, change in vision) Follow Up Care When: in 6 weeks for visit, call the office to make the appointment. If you had elevated blood pressures call the office to be seen within 1 week. Test Results: Test results from this visit will be discussed in further detail at your follow- up appointment, if applicable. Discharge Plan Admission Admit Date/Time: 10/13/22 07:36 Attending Provider: Angela Lemus Primary Care Provider: Care Physician,Jessika Primary Discharge Orders/Prescriptions Prescriptions: No Action prenat.vits,maksim,nsw-zirw-kxowj Tablet 1 tab PO DAILY promethazine 12.5 mg Tablet 12.5 mg PO Q6H PRN PRN (Reason: Nausea) Referrals / Follow Up: Care Physician,No Primary [Primary Care Provider] - Disposition Disposition (needs filled in before D/C Order can be placed): Home, Self Care
[2022-10-13] MEDS: Oxytocin 15 Units/NS 250ml 15 UNITS/250 ML IV.SOLN 83 UNITS IV (23:28)
[2022-10-13] MEDS: Acetaminophen 500 MG Tablet PO (23:29)
--- NOTE | 2022-10-13 23:37 | NURSING ---
This RN took over pt care from Kourtney Medrano RN at [id number]
[2022-10-14] VITALS (9 sets, daily range): BP systolic 114–152; BP diastolic 64–93; PULSE 82–123; RESP 16–18; TEMP 36.3–36.7; O2SAT 96–99
[2022-10-14] MEDS: Cefazolin 2 GM in 0.9% Normal Saline 100 ML IV (00:14)
[2022-10-14] MEDS: LACTATED RINGERS 500 ML 999 ML IV (00:14)
[2022-10-14] MEDS: 0.9% Saline Lock 10 ML Syringe IV (02:34)
--- NOTE | 2022-10-14 07:58 | PN.OBGYN_ITS ---
Subjective Subjective Patient doing well without complaints. Tolerating PO. Ambulating and voiding without difficulty. with some difficulty. Denies chest pain, shortness of breath, calf pain/swelling, fevers, chills, lightheadedness. Objective Data Objective Data Vital Signs: Vital Signs Temp Pulse Resp BP Pulse Ox 97.4 F L 102 H 16 135/76 H 99 10/14/22 04:30 10/14/22 04:30 10/14/22 04:30 10/14/22 04:30 10/13/22 22:06 Weight: 259 lb 8 oz Body Mass Index (BMI) 44.3 Intake & Output: Intake and Output for Last 24 Hours 10/12/22 10/13/22 10/14/22 23:59 23:59 23:59 Intake Total 2867.50 / 2867.50 860 / 860 Output Total 600 / 600 750 / 750 Balance 2267.50 / 2267.50 110 / 110 Lab / Micro Data Result Diagrams: 10/13/22 08:25 Labs: Laboratory Results - last 24 hr 10/13/22 08:25: WBC 8.6, RBC 3.78 L, Hgb 9.9 L, Hct 31.1 L, MCV 82.3, MCH 26.2 L , MCHC 31.8 L, RDW Std Deviation 40.6, RDW Coeff of Deshawn 13.6, Plt Count 316, MPV 12.0, Immature Gran % (Auto) 0.800, Neut % (Auto) 71.7 H, Lymph % (Auto) 18.5 L, Hutchinson % (Auto) 7.8, Eos % (Auto) 0.7, Baso % (Auto) 0.5, Absolute Neuts (auto) 6.1, Absolute Lymphs (auto) 1.58, Nucleated RBC % 0 10/13/22 08:25: Blood Type A POSITIVE, Antibody Screen NEGATIVE Physical Exam Const alert and oriented x3 HEENT normocephalic Eyes PERRL Neck full ROM Resp normal respiratory effort GI soft to palpation GI Narrative: FF below U Assessment & Plan (1) Vaginal delivery: COMMENT: SM girl Magaly IOL 41 atony PPH 500cc methergine hemabate (2) Atony of uterus without hemorrhage: COMMENT: 500cc methergine hemabate given small retained membranes removed; minimal rubra PLAN: Plan s/p PPD # 1 1. routine post delivery care 2. breast feeding- support given 3. rh positive 4. rubella immune
[2022-10-14] MEDS: Acetaminophen 500 MG Tablet 1000 MG PO ×2 (08:15→16:49)
[2022-10-14] MEDS: Senna/Docusate Sodium 1 Tablet PO (08:17)
[2022-10-14] MEDS: Naproxen 500 MG Tablet PO (10:11)
[2022-10-15 01:56] VITALS: BP 142/84; PULSE 88; RESP 16; TEMP 36.8; O2SAT 98
[2022-10-15] MEDS: Acetaminophen 500 MG Tablet 1000 MG PO (06:26)
[2022-10-15 07:57] VITALS: BP 118/78; PULSE 74; RESP 16; TEMP 36.4; O2SAT 98
--- NOTE | 2022-10-15 08:32 | PCM.PN.OB ---
Subjective Subjective Patient doing well without complaints. Tolerating PO. Ambulating and voiding without difficulty. Feeding well. Denies chest pain, shortness of breath, calf pain/swelling, fevers, chills, lightheadedness. Objective Data Objective Data Vital Signs: Vital Signs Temp Pulse Resp BP Pulse Ox O2 Del Method 97.5 F L 74 16 118/78 98 Room Air 10/15/22 07:57 10/15/22 07:57 10/15/22 07:57 10/15/22 07:57 10/15/22 07:57 10/15/22 07:57 Oxygen Delivery Method Room Air Weight: 259 lb 8 oz Body Mass Index (BMI) 44.3 Intake & Output: Intake and Output for Last 24 Hours 10/13/22 10/14/22 10/15/22 23:59 23:59 23:59 Intake Total 2867.50 / 2867.50 860 / 860 Output Total 600 / 600 750 / 750 Balance 2267.50 / 2267.50 110 / 110 Lab / Micro Data Attestation: I reviewed the patient's lab results. Result Diagrams: 10/13/22 08:25 ROS Constitutional Constitutional: Reports as per HPI Respiratory/Chest Respiratory/Chest: Reports as per HPI Gastrointestinal Gastrointestinal: Reports as per HPI Genitourinary Genitourinary: Reports as per HPI Musculoskeletal Musculoskeletal: Reports as per HPI Integumentary Integumentary: Reports as per HPI Neurologic Neurologic: Reports as per HPI Physical Exam Const alert and oriented x3 HEENT normocephalic Eyes PERRL Neck full ROM Resp normal respiratory effort GI soft to palpation GI Narrative: FF below U Assessment & Plan (1) Atony of uterus without hemorrhage: COMMENT: 500cc methergine hemabate given small retained membranes removed; minimal rubra (2) Vaginal delivery: COMMENT: SM girl Magaly IOL 41 atony PPH 500cc methergine hemabate PLAN: Plan s/p PPD # 1 1. routine post delivery care 2. breast feeding- support given 3. rh positive 4. rubella immune 5. d.c home today
[2022-10-15] MEDS: Benzocaine/Lanolin/Aloe Vera 1 SPRAY EACH TOPICAL (09:31)
--- NOTE | 2022-10-15 11:26 | NURSING ---
Reviewed and agreed with Sadia WILLIAM charting.
== END 2022-10-15 11:20 | disposition home or self-care (01) | DRG 560 ==
PROVIDERS: Admitting Provider Obstetrics & Gynecology; Visit Provider Obstetrics & Gynecology
DX: O75.89 Other specified complications of labor and delivery (principal); Z37.0 Single live birth; K46.9 Unspecified abdominal hernia without obstruction or gangrene; O99.62 Diseases of the digestive system complicating childbirth; O99.824 Streptococcus B carrier state complicating childbirth; O99.214 Obesity complicating childbirth; O70.0 First degree perineal laceration during delivery; Z3A.40 40 weeks gestation of pregnancy
CPT/HCPCS: 59025; 59050; 85025; 86850; 86900; 86901; 99218; J7120; A4216; G0378; J2405